=== PATIENT | female | born 1985 | race Hispanic/Latino ===

== ENCOUNTER 2017-07-12 11:03 | Day surgery (SDC) | payer OTHER ==
[2017-07-11 13:27] VITALS: BMI 20.6
[2017-07-12 12:26] LABS: MEAN CELL VOLUME 90.8 fl (81.0-99.0); MEAN CORPUSCULAR HEMOGLOBIN 31.6 pg (27.0-31.0); MEAN CORPUSCULAR HGB CONC 34.8 g/dL (33.0-37.0); RBC 4.13 Mil/uL (3.80-5.20); RED CELL DISTRIBUTION WIDTH 12.2 % (11.5-14.5)
[2017-07-12] MEDS ORDERED: Rocuronium 10 mg/ml (5 ml) ONE ×2 (15:17→16:56)
[2017-07-12] MEDS ORDERED: Midazolam 2 MG/2 ML VIAL ONE (15:17)
[2017-07-12] MEDS ORDERED: Propofol 10 mg/ml Inj (20 ML) ONE (15:17)
[2017-07-12] MEDS ORDERED: Dexamethasone 4 mg/1 ml ONE (15:18)
[2017-07-12] MEDS ORDERED: Lidocaine 1% 5ml Abboject IV ONE (15:19)
[2017-07-12] MEDS ORDERED: Succinylcholine 200 mg/10 ml Inj IV ONE (15:27)
[2017-07-12] MEDS ORDERED: Bupivacaine 0.5% Inj(30mL) ONE (15:35)
[2017-07-12] MEDS ORDERED: Lactated Ringer's 1,000 ML IV ONE (15:50)
[2017-07-12] MEDS ORDERED: Bupivacaine 0.5% 50 ML IJ ONE (16:20)
[2017-07-12] MEDS ORDERED: Neostigmine 1:1000 (1 mg/ml) Inj ONE (17:17)
[2017-07-12] MEDS ORDERED: HYDROmorphone 0.5 mg/0.5 ml ISec ONE ×2 (17:44→17:56)
[2017-07-12] MEDS ORDERED: ACETAMINOPHEN IVPB ONE (18:38)
[2017-07-12 22:15] VITALS: RESP 18
[2017-07-13 04:02] VITALS: BP 103/69; PULSE 70; TEMP 97.6; O2SAT 100
--- NOTE | 2017-07-15 09:22 | PCM.OP ---
Operative Report - Operative Report Date of Surgery/Procedure: 07/12/17 Time of Surgery/Procedure: 15:00 Surgeon: Dr. Sixto Alvarado Assistant Professor Of Geography: Dr. Emmanuel Hart Anesthesia/Sedation: general/Dr. Gillespie Pre-Operative Diagnosis: abdominal pain and endometriosis Post-Operative Diagnosis: same Indication for Surgery: as above Operative Findings: as above Procedure/Operation Description: 1-Appendectomy. Brief History: This is a 32 year old woman with endometriosis that Dr. Hart had initiated a robotic procedure when he asked for iontraoperative general surgery consutation for appendiceal involvement. Description of the Procedure: Dr Tanner mccoy already initated the robotic procedure. 9separate dictation Dr. Hart). After taking control of the robotic console the appendix was retracted anteriorly and the mesentery was dessictaed with electrocautery with particular attention to the appendiceal artery. Once dissected to the base three 3-0 endo-loops were placed in the usual manner and the appendix was transected. The remnant mucosa was gnmetly dessicated. The specimen was marked and sent to pathooogy separately. The operation was then turned over to Dr. Hart (separate dictation Dr. Hart) . Estimated Blood Loss: 2 cc Complications: none Discharge & Condition: stable
--- NOTE | 2017-07-16 20:40 | OP ---
PROCEDURE DATE: 07/12/2017 PREOPERATIVE DIAGNOSES: Pelvic pain, dysmenorrhea, dyspareunia and bladder pain. POSTOPERATIVE DIAGNOSES: Pelvic pain, dysmenorrhea, dyspareunia, bladder pain, pelvic endometriosis stage II to III and possible chronic versus acute appendicitis. PROCEDURE PERFORMED: Cystoscopy with bilateral ureteral catheterization, da Hank robotic operative laparoscopy, excision of the endometriosis, bilateral ureterolysis and peritoneal ablation utilizing plasma helium. To be dictated separately by Dr. Alvarado is appendectomy. SURGEON: Emmanuel Hart MD CREDIT UNION FIELD EXAMINER: Sixto Alvarado MD COMPLICATIONS: None. SPECIMENS: Appendix suggestive of appendicitis, left periurethral endometriosis, uterosacral endometriosis, right periurethral endometriosis and right ovarian fossa endometriosis. INDICATIONS FOR THE PROCEDURE: The patient presented with history of pelvic pain, dysmenorrhea, dyspareunia and bladder pain. A physical exam was suggestive of acute pain in both right and left side with peritoneal side suggestive of endometriosis. She also had inflammatory changes on exam, again was suggestive of endometriosis. The patient was counseled with regards to the risk and benefits of the procedure. Prior to the surgery, she reaffirmed the consent and was taken to the OR. DESCRIPTION OF PROCEDURE: After adequate anesthesia was obtained, the patient was placed in a dorsal lithotomy position and she was prepped and draped. The surgeons were gowned and gloved. At this point, a time-out was taken according to the hospital policy and it was checked for padding around the patient to make sure that any area subjected to pressure would be padded and also throughout the entire procedure, extreme attention was placed never to over extend or over flex the hips of the patient. At this point, the procedure was started with attention first in the vaginal area where the cystoscope was placed in the bladder under direct visualization and the bladder was inspected, appeared to be normal size with no evidence of tumors or lesions. The ureteral ostia were in normal anatomical position and they were both at this point cannulized, first on the left one utilizing a 5-[place] open-ended catheter all the way to the distal ureter and then 5 mL of IC-Green were injected, the catheter was then retracted. At this point, on the contralateral side, the catheter was advanced to the distal ureter and 5 mL of IC-Green were also injected in the distal ureter. At this point, the catheter was removed and Jones 16-[place]i was placed into the bladder. At this point, a speculum was placed into the vagina. The anterior lip of the cervix was grasped and the cervix was gently dilated and hysteroscope was inserted into the uterine cavity, which was distended properly and appeared to be free of lesions, tumors or any other abnormality. At the point, attention was on the abdomen, where an open laparoscopy was performed utilizing standard technique by making incision of the skin and then entering the peritoneum and the fascia in a blunt way. At this point, the cannula was inserted and the abdomen was distended utilizing CO2 and under direct visualization, 3 additional ports were inserted, left upper quadrant, left mid quadrant and right upper quadrant. At this point, da Hank robot was docked and the procedure was started. Upper abdomen appeared to be normal. The appendix appeared to have some abnormalities, which were suggestive of inflammatory involvement possibly appendicitis. Dr. Sixto Alvarado, for General Surgery was called into perform the procedure. The pelvis was visualized, both ovaries and fallopian tubes appeared to be normal. There was a evidence of endometriosis, classic powder-burn deep infiltrating endometriosis with largest lesion being in the left uterosacral area, but also with lesions in the left pelvic sidewall, left ovarian fossa and right pelvic sidewall. Attention was first on the left pelvic sidewall where the peritoneum was entered utilizing florescent technology, the ureter was identified and the retroperitoneum was entered. The ureter was lateralized and the peritoneum was medialized and full excision was performed excising a large area of endometriosis. The same resection was continued extending to the left ovarian fossa where peritoneum was dissected off both vessels on the left hand side. At this time, attention was in the uterosacral area where attention was placed in not injuring to avoid the underlying bowel . Additionally, on the posterior cervical area, areas of peritoneum was also identified containing endometriosis, these were also excised with great care not to enter the vagina or affecting the rectum. Attention was now on the right hand side where after elevating the ovary which was attached to the pelvic sidewall. An area of endometriosis was noticed overlying the infundibulopelvic ligament. The perineum was entered and peritoneum was progressively dissected off and an area of endometriosis was dissected. The dissection then continued in the retroperitoneal space, medialized to the peritoneum and lateralizing the ureter with full dissection of the peritoneum containing also endometriosis. At this point, it was checked for hemostasis, there appeared to be excellent. At this point, da Hank robot was undocked. The abdomen was desufflated. The instruments were removed. The incisions were closed in layers with 0 PDS for the fascia and 4-0 Monocryl for the skin. At the end of the procedure, all tapes and instruments counts were correct. The patient tolerated the procedure well and was taken to the recovery room in excellent condition. Emmanuel Hart MD MTDAshly
== END 2017-07-12 23:45 | disposition home or self-care (01) ==
LOC: H.OPSURG 11:03 → H.PEDS 19:47 → H.OPSURG 23:45
PROVIDERS: ATTEND Obstetrics & Gynecology Reproductive Endocrinology
DX: N80.0 Endometriosis of uterus (principal); J45.909 Unspecified asthma, uncomplicated; N94.6 Dysmenorrhea, unspecified; K35.80 Unspecified acute appendicitis
CPT/HCPCS: 36415; 44970; 58563; 58662; 85027; 86850; 86900; 88304; 88305; C1729; J0131; J1100; J1170; J2250; J2405; J2704; J2710; J3010; J7030; J7040; J7120